=== PATIENT | male | born 1960 | race Caucasian/White ===

== ENCOUNTER → 2019-11-05 | Emergency (ER) | payer MEDICAID, OTHER ==
[~2019-11-05] VITALS: Ht 185.4 cm; Wt 88.5 kg
[~2019-11-05] MED LIST: ACETAMINOPHEN 325 MG TAB PO ONE; LORazepam 0.5 MG TAB PO ONE; ONDANSETRON ODT 4 MG TAB PO ONE; QUEtiapine FUMARATE 25 MG TAB PO SCH; SERTRALINE HCL 50 MG TAB ONE; SERTRALINE HCL 50 MG TAB PO SCH; busPIRone HCL 10 MG TAB PO ONE
[2019-11-05 08:11] LABS: Basophils # (auto) 0.1 10 ^3/uL (0-0.2); Basophils % (auto) 0.6 % (0.0-2.0); Eosinophils # (auto) 0.2 10 ^3/uL (0-0.8); Eosinophils % (auto) 2.1 % (0.0-7.0); Hematocrit 46.2 % (41.0-53.0); Hemoglobin 15.6 g/dL (13.5-17.5); Lymphocytes # (auto) 2.2 10 ^3/uL (0.4-5.4); Lymphocytes % (auto) 25.1 % (10.0-50.0); Mean Corpuscular Hemoglobin 29.3 pg (28.0-32.0); Mean Corpuscular Hgb Conc. 33.8 g/dL (32.0-36.0); Mean Corpuscular Volume 86.6 fL (80.0-100.0); Monocytes # (auto) 0.6 10 ^3/uL (0-1.3); Monocytes % (auto) 6.2 % (0.0-12.0); Neutrophils # (auto) 5.9 10 ^3/uL (1.6-8.6); Nucleated Red Blood Cells % 0.1 %; Platelet Count (auto) 196 10^3/uL (140-450); Red Blood Cells 5.33 10^6/uL (4.5-5.90); Red Cell Distribution Width 13.5 % (11.8-14.3); White Blood Cell 8.9 10^3/uL (4.4-10.8)
[2019-11-05 08:28] LABS: Urine Bacteria NONE SEEN /hpf (None Seen); Urine Blood Negative /uL (Negative); Urine Mucus FEW (None Seen); Urine Specific Gravity 1.024 (1.001-1.035); Urine WBC <1 /hpf (0 - 3)
[2019-11-05 08:31] LABS: Albumin 3.7 g/dL (3.4-5.0); Anion Gap 7 (5-15); Blood Alcohol < 3.0 mg/dL (0-5); Blood Urea Nitrogen 13 mg/dL (7-18); Calcium 8.6 mg/dL (8.5-10.1); Carbon Dioxide 25 mmol/L (21-32); Chloride 105 mmol/L (98-107); Glucose 105 mg/dL (74-106); Potassium 3.6 mmol/L (3.5-5.1); Sodium 137 mmol/L (136-145)
[2019-11-05 08:32] LABS: Acetaminophen < 2.0 ug/mL (10-30); Salicylate < 1.7 mg/dL (2.8-20.0)
[2019-11-05 08:37] LABS: Alanine Aminotransferase 19 U/L (16-61); Alkaline Phosphatase 78 U/L (45-117); Aspartate Aminotransferase 12 U/L (15-37); BUN/Creatinine Ratio 18.1; Bilirubin, Total 0.6 mg/dL (0.2-1.0); GFR African American 144 mL/min; GFR Non-African American 119 mL/min; Total Protein 7.1 g/dL (6.4-8.2)
[2019-11-05 08:44] LABS: Alcohol, Urine < 3.0 mg/dL (0-10); Amphetamine Screen, Urine NEGATIVE (NEGATIVE); Barbiturate Scree,Urine NEGATIVE (NEGATIVE); Benzodiazephine Screen, Urine NEGATIVE (NEGATIVE); Cannabinoid Screen, Urine NEGATIVE (NEGATIVE); Cocaine Screen, Urine NEGATIVE (NEGATIVE); Opiate Scree,Urine NEGATIVE (NEGATIVE); Phencyclidine Screen, Urine NEGATIVE (NEGATIVE)
[2019-11-05] MEDS: busPIRone HCL 10 MG TAB PO SCH ×2 (14:05→22:41)
[2019-11-05] MEDS: MIRTAZAPINE 30 MG TAB PO SCH (22:41)
[2019-11-06] MEDS: busPIRone HCL 10 MG TAB PO SCH ×3 (00:15→14:15)
[2019-11-06] MEDS: MIRTAZAPINE 30 MG TAB PO SCH (00:15)
[2019-11-06] MEDS: QUEtiapine FUMARATE 25 MG TAB PO SCH (10:15)
[2019-11-06] MEDS: SERTRALINE HCL 50 MG TAB PO SCH (10:15)
[2019-11-07] MEDS: busPIRone HCL 10 MG TAB PO SCH ×3 (06:00→22:00)
[2019-11-07] MEDS: SERTRALINE HCL 50 MG TAB PO SCH (12:11)
[2019-11-07] MEDS: QUEtiapine FUMARATE 25 MG TAB PO SCH ×2 (12:11→22:03)
[2019-11-07] MEDS: MIRTAZAPINE 30 MG TAB PO SCH (22:00)
[2019-11-08] MEDS: busPIRone HCL 10 MG TAB PO SCH ×3 (06:00→22:46)
[2019-11-08] MEDS: QUEtiapine FUMARATE 25 MG TAB PO SCH ×2 (09:34→22:47)
[2019-11-08] MEDS: SERTRALINE HCL 50 MG TAB PO SCH (15:13)
[2019-11-08] MEDS: MIRTAZAPINE 30 MG TAB PO SCH (22:46)
[2019-11-09 10:30] VITALS: BP 147/85
[2019-11-09] MEDS: busPIRone HCL 10 MG TAB PO SCH (10:34)
[2019-11-09] MEDS: QUEtiapine FUMARATE 25 MG TAB PO SCH (10:34)
== END | disposition home or self-care (01) ==
LOC: EDBD 07:36 → ER 07:36
DX: R45.851 Suicidal ideations (principal); F32.9 Major depressive disorder, single episode, unspecified; R44.0 Auditory hallucinations; I10 Essential (primary) hypertension; F17.210 Nicotine dependence, cigarettes, uncomplicated
CPT/HCPCS: 36415; 80053; 80307; 80320; 80329; 81001; 84484; 85025